=== PATIENT | female | born 1995 | race Two or more races ===

== ENCOUNTER 2018-01-31 06:03 | Inpatient (IN) ==
[2018-01-31] MEDS ORDERED: ONDANSETRON 4 MG/2 ML VIAL IV PRN (06:20)
[2018-01-31] MEDS ORDERED: BUTORPHANOL 2 MG/ML VIAL IV PRN (06:20)
[2018-01-31] MEDS ORDERED: MEPERIDINE 50 MG/1 ML VIAL IV PRN (06:20)
[2018-01-31] MEDS ORDERED: OXYTOCIN/LR 20 UNIT/1,000 ML BAG IV SCH (06:30)
[2018-01-31] MEDS ORDERED: LACTATED RINGERS 1,000 ML IV SCH ×2 (06:30→10:30)
[2018-01-31 06:43] LABS: Basophils # 0.1 10*3/uL (0.0-0.2); Basophils % 0.6 % (0.0-0.8); Eosinophils # 0.1 10*3/uL (0.0-0.87); Eosinophils % 0.6 % (0.00-10.9); Hematocrit 35.1 VOL% (35.7-47.0); Hemoglobin 10.9 GM/DL (12.0-16.0); Immature Granulocytes % 1.3 %; Immature Granulocytes Absolute 0.16 #; Lymphocytes # 2.8 10*3/uL (1.4-4.0); Lymphocytes % 22.7 % (21.3-54.2); Mean Corpuscular HGB Conc 31.1 GM/DL (32-36); Mean Corpuscular Hemoglobin 26 PG (27-34); Mean Corpuscular Volume 84.4 FL (87-102); Mean Platelet Volume 12.6 FL (9.6-12.0); Monocytes # 0.7 10*3/uL (0.11-0.8); Monocytes % 5.3 % (1.7-12.7); Neutrophils # 8.6 10*3/uL (1.4-7.4); Neutrophils % 69.5 % (38.7-73.9); Platelet Count 210 T/CUMM (130-400); Red Blood Count 4.16 MC/CUMM (3.8-5.5); Red Cell Distribution Width 13.2 % (9.3-17.3); White Blood Count 12.4 T/CUMM (4-12)
[2018-01-31 07:17] LABS: Apearance,Urine Slightly Hazy (Clear); Bacteria,Urine Occasional /HPF (Few); Bilirubin,Urine Negative (Negative); Blood, Urine Large mg/dL (Negative); Calcium Oxalate Crystals,Urine Occasional /HPF (Few); Glucose,Urine (UA) Negative (Negative); Ketones,Urine Negative (Negative); Mucus,Urine Occasional /LPF (Occasional); Nitrite,Urine Negative (Negative); Protein,Urine 30 MG/DL; RBC,Urine 6 /HPF (0-4); Squamous Epithelial Cell,Urine Few /HPF (0-10); Urine Color Yellow (Yellow); Urine Specific Gravity 1.017 (1.001-1.035); Urine Urobilinogen < 2.0 EU/DL (0.2-1.0); WBC,Urine 43 /HPF (0-6)
[2018-01-31 07:33] LABS: Alanine Aminotransferase 10 U/L (13-56); Albumin 2.1 G/DL (3.4-5.0); Alkaline Phosphatase 169 U/L (45-117); Aspartate Amino Transferase 14 U/L (0-37); Bilirubin,Total < 0.39 MG/DL (0.2-1.0); Blood Urea Nitrogen 8 MG/DL (7-18); Calcium 8.5 MG/DL (8.5-10.1); Glucose 114 MG/DL (74-106); Osmolality,Calculated 273.7 MOS/KG (273-304); Potassium 3.5 MMOL/L (3.5-5.1); Sodium 138 MMOL/L (136-145); Total Protein 6.5 G/DL (6.4-8.3)
[2018-01-31] MEDS ORDERED: AMPICILLIN INJ 2,000 MG in SODIUM CHLORIDE 0.9% 100 ML IV SCH (08:00)
[2018-01-31] MEDS ORDERED: AMPICILLIN INJ 2,000 MG in SODIUM CHLORIDE 0.9% 100 ML IV ONE (08:00)
[2018-01-31] MEDS ORDERED: LIDOCAINE 1% 50 ML VIAL ONE (09:52)
[2018-01-31] MEDS ORDERED: CARBOPROST TROMETHAMINE 250 MCG/ML AMP IM ONE (09:53)
[2018-01-31] MEDS ORDERED: METHYLERGONOVINE 0.2 MG/1 ML AMP ONE (09:53)
[2018-01-31] MEDS ORDERED: miSOPROStol 200 MCG TABLET ONE (09:54)
[2018-01-31] MEDS ORDERED: LACTATED RINGERS 250 ML IV PRN (10:22)
[2018-01-31] MEDS ORDERED: PROMETHAZINE 25 MG/1 ML VIAL IM ONE (10:22)
[2018-01-31] MEDS ORDERED: hydrOXYzine HCL 25 MG/1 ML VIAL IM PRN (10:22)
[2018-01-31] MEDS ORDERED: ePHEDrine 50 MG/ML AMP IV PRN (10:22)
[2018-01-31] MEDS ORDERED: CITRIC ACID/SODIUM CITRATE 30 ML UDCUP PO ONE (10:22)
[2018-01-31] MEDS ORDERED: NALOXONE 0.4 MG/ML VIAL IV PRN (10:22)
[2018-01-31] MEDS ORDERED: diphenhydrAMINE 50 MG/1 ML VIAL IV PRN ×2 (10:22)
[2018-01-31] MEDS ORDERED: FAMOTIDINE 20 MG/2 ML VIAL IV ONE (10:22)
[2018-01-31] MEDS ORDERED: ONDANSETRON 4 MG/2 ML VIAL IV ONE (10:22)
[2018-01-31] MEDS ORDERED: fentaNYL 2 MCG/ROPIV 0.2% EPID 100 ML EPIDURAL SCH (10:30)
[2018-01-31] MEDS ORDERED: SODIUM CHLORIDE 0.9% 100 ML IV ONE (11:39)
[2018-01-31] MEDS ORDERED: AMPICILLIN INJ 1,000 MG in SODIUM CHLORIDE 0.9% 100 ML IV SCH (12:00)
[2018-01-31 13:39] LABS: Cord Arterial Blood HCO3 19.3 MMOL/L
[2018-01-31 13:40] LABS: Cord Venous Blood HCO3 22.8 MMOL/L; Cord Venous Blood PCO2 39.9 MMHG; Cord Venous Blood PO2 36.8 MMHG
[2018-01-31] MEDS ORDERED: BENZOCAINE 20%/MENTHOL 0.5% SPRAY 56 GM CAN TOP PRN (16:18)
[2018-01-31] MEDS ORDERED: ACETAMINOPHEN/CODEINE 300-30 MG TABLET PO PRN (16:18)
[2018-01-31] MEDS ORDERED: HYDROCORTISONE 2.5% RECTAL CREAM 30 GM TUBE TOP PRN (16:18)
[2018-01-31] MEDS ORDERED: BISACODYL 10 MG SUPP RECTAL PRN (16:18)
[2018-01-31] MEDS ORDERED: oxyCODONE/ACETAMINOPHEN 5-325 MG TABLET PO PRN ×2 (16:18)
[2018-01-31] MEDS ORDERED: WITCH HAZEL PADS 100/JAR TOP PRN (16:18)
[2018-01-31] MEDS ORDERED: LANOLIN 50% CREAM 0.3 OZ TUBE TOP PRN (16:18)
[2018-01-31] MEDS ORDERED: RHO(D) IMMUNE GLOBULIN 300 MCG SYRINGE IM ONE (16:30)
[2018-01-31] MEDS ORDERED: MEASLES/MUMPS/RUBELLA VACCINE 0.5 ML VIAL SUBCUT ONE (16:30)
[2018-01-31] MEDS ORDERED: DIPH/TET/ACEL PERT BOOSTER VACCINE 0.5 ML VIAL IM ONE (16:30)
[2018-01-31] MEDS: IBUPROFEN 800 MG TABLET PO PRN (19:56)
[2018-01-31] MEDS: DOCUSATE SODIUM 100 MG CAPSULE PO SCH (20:06)
[2018-02-01] MEDS: IBUPROFEN 800 MG TABLET PO PRN ×2 (03:44→19:42)
[2018-02-01 06:32] LABS: Basophils # 0.1 10*3/uL (0.0-0.2); Basophils % 0.4 % (0.0-0.8); Eosinophils # 0.1 10*3/uL (0.0-0.87); Eosinophils % 0.3 % (0.00-10.9); Hematocrit 29.3 VOL% (35.7-47.0); Hemoglobin 9.1 GM/DL (12.0-16.0); Immature Granulocytes % 0.9 %; Immature Granulocytes Absolute 0.14 #; Lymphocytes # 2.5 10*3/uL (1.4-4.0); Lymphocytes % 16.4 % (21.3-54.2); Mean Corpuscular HGB Conc 31.1 GM/DL (32-36); Mean Corpuscular Hemoglobin 26 PG (27-34); Mean Corpuscular Volume 83.2 FL (87-102); Mean Platelet Volume 12.7 FL (9.6-12.0); Monocytes % 6.7 % (1.7-12.7); Neutrophils # 11.3 10*3/uL (1.4-7.4); Neutrophils % 75.3 % (38.7-73.9); Platelet Count 146 T/CUMM (130-400); Red Blood Count 3.52 MC/CUMM (3.8-5.5); Red Cell Distribution Width 13.2 % (9.3-17.3)
[2018-02-01] MEDS: FERROUS SULFATE 325 MG TABLET PO SCH ×2 (09:05→20:07)
[2018-02-01] MEDS: DOCUSATE SODIUM 100 MG CAPSULE PO SCH ×2 (09:05→20:07)
[2018-02-01] MEDS: ACETAMINOPHEN 325 MG TABLET PO PRN ×2 (16:58→23:03)
[2018-02-02] MEDS ORDERED: INFLUENZA VIRUS VACCINE 0.5 ML SYRINGE IM ONE ×2 (06:27→10:00)
[2018-02-02 08:32] VITALS: BP 117/71
[2018-02-02] MEDS: FERROUS SULFATE 325 MG TABLET PO SCH (09:18)
[2018-02-02] MEDS: DOCUSATE SODIUM 100 MG CAPSULE PO SCH (09:18)
== END 2018-02-02 13:05 | disposition home or self-care (01) | DRG 560 ==
LOC: N.LDOUT 06:03 → N.LD 06:05 → N.OB 16:18
PROVIDERS: ADMIT Obstetrics & Gynecology; ATTEND Obstetrics & Gynecology